=== PATIENT | male | born 1990 | race Caucasian/White ===

== ENCOUNTER 2025-06-06 18:48 | Emergency (ER) | payer BC ==
[~2025-06-06] VITALS: Ht 175.3 cm; Wt 104.3 kg
[~2025-06-06 18:48] MED LIST: ALBU90OI INH; CLAR250 PO; CYCL10 PO; HYDGUAL120 PO; PENVK250 PO; [UNRECOGNIZED DRUG - REMARK]
[2025-06-06] MEDS ORDERED: IBUP200 PO (19:12)
[2025-06-06] MEDS ORDERED: RX Prepack 6 Tabs Oxycodone 5mg UD ONE (21:05)
[2025-06-06] MEDS ORDERED: RX Prepack 2 Tabs Ondansetron ODT 4MG UD ONE (21:30)
[2025-06-06] MEDS ORDERED: Ondansetron 4 MG SoluTab SL ONE (21:30)
== END 2025-06-06 21:34 | disposition home or self-care (01) ==
LOC: ER 18:48
DX: S49.82XA Other specified injuries of left shoulder and upper arm, initial encounter (principal); V92.05XA Drowning and submersion due to fall off canoe or kayak, initial encounter
CPT/HCPCS: 73030; A9270